=== PATIENT | female | born 1945 | race Caucasian/White ===

== ENCOUNTER 2017-10-11 09:18 | Outpatient (CLI) | payer MEDICARE, SELFPAY ==
[2017-10-11] VITALS (7 sets, daily range): BP systolic 115–137; BP diastolic 68–86; PULSE 64–72; RESP 14–18; TEMP 36.4; O2SAT 98–100
--- NOTE | 2017-10-11 09:23 | DI.RAD.S_ITS ---
PROCEDURE: PAIN L/S TRANSFORAMINAL INJECT INDICATIONS: Right L4/5 TFESI due to Stenosis FINDINGS: Fluoroscopic spot filming was performed to verify placement of spinal needles at the right L4-5 level(s), as labeled on the films in the setting of transitional anatomy and a partially sacralized L5 with reference to the lowest visible ribs (presumably T12). Appropriate location(s) of the needle tip(s) was confirmed by injection of iodinated contrast. IMPRESSION: Transitional anatomy, unusually low L4-L5 level. Needle tip localization on the right at L4-5 based on prior anatomic review of the segmentation of the lumbosacral spine with reference to the T12 level). Successful right L4-5 localization when this is taken into account. Dictated by: Raymond Still M.D. on 10/11/2017 at 16:56 Approved by: Raymond Still M.D. on 10/11/2017 at 17:02
--- NOTE | 2017-10-11 10:41 | P.PCN_ITS ---
Procedures Date/Time Date of procedure: 10/11/17 Time of procedure: 10:59 General Procedure description: PREOP DIAGNOSIS 1. FORMAINAL STENOSIS WITH LE SYMPTOMS POST OP DIAGNOSIS 1. FORMAINAL STENOSIS WITH LE SYMPTOMS PROCEDURES 1. FLUOROSCOPICALLY GUIDED CONTRAST CONTROLLED TRANSFORAMINAL EPIDURAL STEROID INJECTION - RIGHT L4/5 TFESI PHYSICIAN: Alex Shrestha DO INDICATIONS: Shey is referred by Phuong Keller for treatment of Foraminal Stenosis with Right LE Symptoms FINDINGS Foraminal Nerve Root Compression secondary to disc disease and facet hypertrophy DESCRIPTION OF PROCEDURE: Following denial of allergy and review of potential side effects and complications, including, but not necessarily limited to, infection, allergic reaction, local tissue breakdown, stroke, temporary or permanent nerve injury, paralysis, and possible , the patient indicated that the patient understood and agreed to proceed. An informed consent document was signed by the patient, witnessed by a nurse, and placed in the patient's chart. Additionally, other treatment options including medications, modalities, and physical therapy were reviewed with the patient. Per the patient request, IV conscious sedation was administered via 3mg of Versed to patient comfort. The patient's vital signs were monitored throughout the procedure by both the nurse and the physician without significant fluctuation. The patient remained conversant throughout the procedure. In the prone position following sterile prep and drape of the lumbar region, the Right L4/5 posterior neuroforamen was identified fluoroscopically. The skin was anesthetized via a 25-gauge 1.5-inch needle with 1% lidocaine solution. At this point, a 25-gauge 3.5-inch spinal needle was atraumatically introduced and advanced under fluoroscopic guidance through the posterior Right L4/5 neuroforamen to approximately the anterior aspect of the canal. Depth was confirmed on lateral view. Following negative aspiration, injection of approximately 1.5 cc of Isovue 200 under live fluoroscopy in the AP view confirmed excellent flow along the nerve root, into the epidural space without vascular or intrathecal uptake observed Radiological data, including multiple fluoroscopic views of the lumbosacral spine, reveal a spinal needle at the right L4/5 posterior neuroforamen. Subsequent views show flow of contrast material flowing superiorly and inferiorly along the nerve root confirming epidural flow. Subsequently, a test dose of 1.5 cc of 1% lidocaine solution was administered and patient was observed for two minutes for signs or symptoms of complications , including abdominal pain, shortness of breath, bilateral upper or lower extremity weakness, nausea and vomiting, prior to steroid injection. At this point, a total of 3 cc or 20 mg of dexamethasone and 80mg Depo Medrol was injected without incident. The patient was then transferred to the recovery area where they were observed for an appropriate time after the injection. The patient reported a VAS score of 7 prior to the procedure and a post-procedure VAS of 0. Total Fluoroscopy Time: 20.9 seconds Total Conscious Sedation Time: 24min POST OP INSTRUCTIONS The patient was provided a Pain Log to continue to record their response to the target-specific procedure prior to follow-up visit with their referring physician. Additionally, specific post-injection care instructions and a contact number to our office were provided if concerns arise regarding possible complications associated with the procedure are suspected. Alex Shrestha DO Complications: none
[2017-10-11] MEDS: BUPIVACAINE 0.25% (PF) 30 ML VIAL INJ (11:15)
[2017-10-11] MEDS: DEXAMETHASONE 10 MG/ML VIAL 20 MG INJ (11:15)
[2017-10-11] MEDS: methylPREDNISolone acetate 80 MG/ML VIAL INJ (11:15)
[2017-10-11] MEDS: IOPAMIDOL 15 ML VIAL 3 ML INJ (11:15)
[2017-10-11] MEDS: MIDAZOLAM 5 MG/5 ML VIAL IV (12:08)
== END 2017-10-11 12:00 | disposition home or self-care (01) ==
PROVIDERS: PCP Physician Assistant Medical; Visit Provider Physical Medicine & Rehabilitation
DX: M48.061 Spinal stenosis, lumbar region without neurogenic claudication (principal); M54.17 Radiculopathy, lumbosacral region; M41.20 Other idiopathic scoliosis, site unspecified
CPT/HCPCS: 64483; 99152; J1040; J1100; J2250